=== PATIENT | female | born 1990 | race Two or more races ===

== ENCOUNTER 2022-10-30 13:46 | Emergency (ER) | payer SELFPAY ==
[~2022-10-30] VITALS: Ht 149.9 cm; Wt 48.5 kg
[2022-10-30 13:47] VITALS: BP 92/55; TEMP 98.6; O2SAT 98
[2022-10-30] MEDS ORDERED: CEFD300C41 PO (14:24)
== END 2022-10-30 14:40 | disposition left against medical advice (07) ==
LOC: M ED 13:46
DX: Z53.21 Procedure and treatment not carried out due to patient leaving prior to being seen by health care provider (principal)

== ENCOUNTER → 2023-01-09 | Outpatient (REF) ==
[~2023-01-09] MED LIST: CEFD300C42 PO
== END ==
LOC: M EMP 13:45
PROVIDERS: ATTEND Family Medicine
DX: Z11.52 Encounter for screening for COVID-19 (principal)

== ENCOUNTER 2023-07-16 08:48 | Emergency (ER) | payer SELFPAY ==
[~2023-07-16] VITALS: Ht 149.9 cm; Wt 53.7 kg
[~2023-07-16 08:48] MED LIST changes: +CEFD1CAP9 PO; -CEFD300C42 PO
[2023-07-16] MEDS ORDERED: PROBCAP2 PO (08:58)
[2023-07-16] MEDS ORDERED: IRON65TA2 PO (08:58)
[2023-07-16] MEDS: KETOROLAC 30 MG/ML 1ML VIAL IV ONE (09:33)
[2023-07-16 09:58] LABS: BASO % 0.3 % (0.0-1.0); HEMATOCRIT 34.6 % (36.0-47.0); HEMOGLOBIN 11.8 g/dl (12.0-15.5); LYMPH # 0.8 10^3/uL (1.5-5.0); LYMPH % 6.6 % (24.0-44.0); MEAN CORPUSCULAR HEMOGLOBIN 30.4 pg (27.0-33.0); MEAN CORPUSCULAR HGB CONC 34.1 g/dl (32.0-36.5); MEAN CORPUSCULAR VOLUME 89.2 fl (80.0-96.0); MONO # 0.8 10^3/uL (0.0-0.8); MONO % 6.6 % (2.0-8.0); NEUTROPHILS # 10.1 10^3/uL (1.5-8.5); NEUTROPHILS % 86.1 % (36.0-66.0); PLATELET COUNT, AUTOMATED 187 10^3/uL (150-450); RED BLOOD COUNT 3.88 10^6/uL (4.00-5.40); WHITE BLOOD COUNT 11.7 10^3/uL (4.0-10.0)
[2023-07-16 10:33] LABS: BLOOD UREA NITROGEN 12 MG/DL (9-23); CALCIUM LEVEL 8.6 MG/DL (8.5-10.1); CARBON DIOXIDE LEVEL 24 MMOL/L (20-31); CHLORIDE LEVEL 105 MMOL/L (98-107); CREATININE FOR GFR 0.58 MG/DL (0.55-1.30); GLOMERULAR FILTRATION RATE > 60.0 (>60); GLUCOSE, FASTING 98 MG/DL (60-100); POTASSIUM SERUM 3.6 MMOL/L (3.5-5.1); SODIUM LEVEL 137 MMOL/L (136-145)
[2023-07-16] MEDS: NS 1,000 ML IV ONE (11:16)
[2023-07-16] MEDS: cefTRIAXone SOD 1 GM in D5W MINI-BAG PLUS 50 ML IV ONE (11:56)
[2023-07-16] MEDS ORDERED: CEPH500C PO (13:00)
[2023-07-16 13:12] VITALS: BP 106/66; TEMP 98.9; O2SAT 98
== END 2023-07-16 13:14 | disposition home or self-care (01) ==
LOC: M ED 08:48
DX: N10 Acute pyelonephritis (principal); F32.A Depression, unspecified; F41.9 Anxiety disorder, unspecified; Z79.2 Long term (current) use of antibiotics; Z79.899 Other long term (current) drug therapy
CPT/HCPCS: 80048; 81001; 84702; 85025; 87088; 87186; 96361; 96365; 96374; 99284; J0696; J1885